=== PATIENT | male | born 1930 | race Hispanic/Latino ===

== ENCOUNTER 2017-02-10 08:15 | Emergency (ER) | payer MEDICARE, BC ==
[2017-02-10 08:16] VITALS: BMI 29.8
[2017-02-10 08:53] LABS: BASO # 0.03 K/mm3 (0.0-2.0); BASO % 0.3 % (0.0-3.0); EOS # 0.2 (0.0-0.7); EOS % 1.7 % (1.5-5.0); GRAN # 6.77 (1.4-6.5); GRAN % 78.7 % (50.0-68.0); HEMOGLOBIN 15.3 g/dL (14.0-18.0); LYMPH # 0.9 (1.2-3.4); LYMPH % 10.5 % (22.0-35.0); MEAN CELL VOLUME 92.9 fl (80.0-105.0); MEAN CORPUSCULAR HEMOGLOBIN 31.2 pg (25.0-35.0); MEAN CORPUSCULAR HGB CONC 33.6 g/dl (31.0-37.0); MEAN PLATELET VOLUME 10.7 fl (7.0-11.0); MONO # 0.8 (0.1-0.6); MONO % 8.8 % (1.0-6.0); PLATELET COUNT 135 10^3/uL (120.0-450.0); RBC 4.91 10^6/uL (3.5-6.1); RED CELL DISTRIBUTION WIDTH 13.9 % (11.5-14.5); WHITE BLOOD COUNT 8.6 10^3/ul (4.5-11.0)
--- NOTE | 2017-02-10 08:53 | ED PDOC ---
Arrival/HPI - General Chief Complaint: Back Pain Time Seen by Provider: 02/10/17 08:27 Historian: Patient - History of Present Illness Narrative History of Present Illness (Text): 02/10/17 08:43 Adrián Byers is a 86 year old male, with a history of hyperlipidemia, and afib on Eliquis, presents to the emergency department complaining of right flank pain s/p fall a week ago. States he was walking in the front yard when he lost balance and fell onto his right wrist and flank region. Denies any loss of consciousness or head trauma. Reports that right wrist pain is resolving, however, states that right flank pain worsened over past few days. Patient was ambulatory after the fall. Denies any numbness, weakness or tingling sensation to the extremity. States he applied a lidocaine patch to the area for minimal relief. Denies fever, chills, headache, dizziness, vision changes, chest pain, difficulty breathing, nausea, vomiting, diarrhea, urinary symptoms, or any other complaints at this time. Time/Duration: 1 week Symptom Onset: Sudden Severity Level: Mild Activities at Onset: Significant Context: Home Past Medical History - Provider Review Nursing Documentation Reviewed: Yes - Cardiac Hx Cardiac Disorders: Yes Hx Pacemaker: No - Neurological Hx Paralysis: No - Hematological/Oncological Hx Blood Transfusions: No - Musculoskeletal/Rheumatological Hx Musculoskeletal Disorders: Yes - Psychiatric Hx Emotional Abuse: No Hx Physical Abuse: No Hx Substance Use: No - Anesthesia Hx Anesthesia Reactions: No Hx Malignant Hyperthermia: No - Suicidal Assessment Feels Threatened In Home Enviroment: No Family/Social History - Physician Review Nursing Documentation Reviewed: Yes Family/Social History: No Known Family HX Smoking Status: Former Smoker Hx Alcohol Use: Yes Frequency of alcohol use: Socially Hx Substance Use: No Allergies/Home Meds Allergies/Adverse Reactions: Allergies No Known Allergies Allergy (Verified 04/23/14 09:57) Home Medications: Home Meds Medication Instructions Recorded Confirmed Apixaban [Eliquis] 2.5 mg PO DAILY 02/10/17 02/10/17 Ezetimibe [Zetia] mg PO DAILY 02/10/17 Review of Systems - Physician Review All systems were reviewed & negative as marked: Yes - Review of Systems Constitutional: Normal. absent: Fatigue, Fevers Respiratory: Normal. absent: SOB, Cough, Sputum Gastrointestinal: Normal. absent: Abdominal Pain, Diarrhea, Nausea, Vomiting Genitourinary Male: Normal. absent: Dysuria Musculoskeletal: Back Pain (Right flank pain ). absent: Neck Pain Skin: Normal Neurological: Normal. absent: Headache, Dizziness Psychiatric: Normal Physical Exam Vital Signs Reviewed: Yes Vital Signs Temp Pulse Resp BP Pulse Ox 02/10/17 12:55 85 16 111/75 96 02/10/17 11:00 80 16 112/80 98 02/10/17 08:58 97.8 F 70 15 126/82 98 Temperature: Afebrile Blood Pressure: Normal Pulse: Regular Respiratory Rate: Normal Appearance: Positive for: Well-Appearing, Non-Toxic, Comfortable Pain Distress: None Mental Status: Positive for: Alert and Oriented X 3 - Systems Exam Head: Present: Atraumatic, Normocephalic Pupils: Present: PERRL Conjunctiva: Present: Normal Mouth: Present: Moist Mucous Membranes Respiratory/Chest: Present: Clear to Auscultation, Good Air Exchange. No: Respiratory Distress, Accessory Muscle Use Cardiovascular: Present: Regular Rate and Rhythm, Normal S1, S2. No: Murmurs Abdomen: Present: Normal Bowel Sounds. No: Tenderness, Distention, Peritoneal Signs Back: Present: CVA Tenderness (right cva tenderness ) Upper Extremity: Present: Normal Inspection, Normal ROM, NORMAL PULSES, Neurovascularly Intact. No: Cyanosis, Edema, Tenderness, Swelling, Erythema, Deformity Lower Extremity: Present: Normal Inspection. No: Edema Neurological: Present: GCS=15, CN II-XII Intact, Speech Normal Skin: Present: Warm, Dry, Normal Color. No: Rashes Psychiatric: Present: Alert, Oriented x 3, Normal Insight, Normal Concentration Medical Decision Making ED Course and Treatment: 02/10/17 08:55 Impression: A 86 year old male who presents to the emergency department complaining of right flank pain s/p fall a week ago. Plan: -- Labs -- CT Lumbar Spine -- Ribs X-ray -- Wrist X-ray -- Urinalysis -- Reassess and disposition Progress Notes: 02/10/17 09:52 Ribs X-ray reviewed: IMPRESSION: Chronic interstitial changes. No evidence of rib fracture 02/10/17 09:53 Wrist X-ray reviewed: No acute findings. 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 There is a slight increase in size in the aneurysm since prior exam. 02/10/17 12:40 Patient did not request for pain medication in the emergency department. He was evaluated by Dr.Smith harry who recommends that patient is stable for discharge and advised patient to follow up at his office on Monday. Patient is aware of the plan and agrees. case also discussed with dr hylton, covering dr montoya, recommends outpt f/u. 02/10/17 14:01 - Lab Interpretations Lab Results: 02/10/17 08:30 02/10/17 08:30 Lab Results 02/10/17 10:45: Urine Color Yellow, Urine Appearance Clear, Urine pH 7.0, Ur Specific [place] 1.010, Urine Protein Trace H, Urine Glucose (UA) Negative, Urine Ketones Negative, Urine Blood Negative, Urine Nitrate Negative, Urine Bilirubin Negative, Urine Urobilinogen 0.2, Ur Leukocyte Esterase Negative, Urine RBC Negative, Urine WBC 0 - 2, Ur Epithelial Cells 0 - 2, Hyaline Casts 0 - 2 02/10/17 08:30: Sodium 139, Potassium 4.8, Chloride 102, Carbon Dioxide 28, Anion Gap 14, BUN 16, Creatinine 1.2, Est GFR ( Amer) > 60, Est GFR (Non- Af Amer) 57, Random Glucose 72, Calcium 9.1, Total Bilirubin 0.6, AST 36, ALT 38 , Alkaline Phosphatase 46, Total Protein 6.9, Albumin 4.0, Globulin 2.9, Albumin /Globulin Ratio 1.4 02/10/17 08:30: PT 12.0 H, INR 1.11 H, APTT 29.3 02/10/17 08:30: WBC 8.6, RBC 4.91, Hgb 15.3, Hct 45.6, MCV 92.9, MCH 31.2, MCHC 33.6, RDW 13.9, Plt Count 135, MPV 10.7, Gran % 78.7 H, Lymph % (Auto) 10.5 L, Christian % (Auto) 8.8 H, Eos % (Auto) 1.7, Baso % (Auto) 0.3, Gran # 6.77 H, Lymph # 0.9 L, Christian # 0.8 H, Eos # 0.2, Baso # 0.03 - RAD Interpretation Radiology Orders: 02/10/17 08:35 RIBS RIGHT & PA CHEST [RAD] Stat WRIST, RIGHT 3 VIEWS [RAD] Stat 02/10/17 09:05 ABD & PELVIS IV CONTRAST ONLY [CT] Stat 02/10/17 09:06 LUMBAR SPINE W/O CONTRAST [CT] Stat - Medication Orders Current Medication Orders: Discontinued Medications Iohexol (Omnipaque 350 100 Ml) Confirm Administered Dose 350 mg .ROUTE .STK-MED ONE Stop: 02/10/17 09:28 - Scribe Statement The provider has reviewed the documentation as recorded by the Rigoibe Speedy Horton Provider Attestation: Provider Scribe Attestation: All medical record entries made by the Scribe were at my direction and personally dictated by me. I have reviewed the chart and agree that the record accurately reflects my personal performance of the history, physical exam, medical decision making, and the department course for this patient. I have also personally directed, reviewed, and agree with the discharge instructions and disposition. Disposition/Present on Arrival - Present on Arrival Any Indicators Present on Arrival: No History of DVT/PE: No History of Uncontrolled Diabetes: No Urinary Catheter: No History of Decub. Ulcer: No History Surgical Site Infection Following: None - Disposition Have Diagnosis and Disposition been Completed?: Yes Diagnosis: Endoleak post endovascular aneurysm repair, Fall, Back pain Disposition: HOME/ ROUTINE Disposition Time: 14:01 Condition: STABLE Discharge Instructions (ExitCare): Fall Prevention for Older Adults (GEN), Acute Low Back Pain (ED) Additional Instructions: please follow up with your doctor/specialist. return to er with worsening symptoms or concerns. Prescriptions: Cyclobenzaprine [Cyclobenzaprine HCl] 10 mg PO DAILY PRN #10 tab PRN Reason: Muscle Spasm Referrals: Esteban Morillo MD [Primary Care Provider] - Follow up with primary Forms: Fio (German)
[2017-02-10 09:03] LABS: INR 1.11 (0.93-1.08); PARTIAL THROMBOPLASTIN TIME 29.3 Seconds (23.7-30.8)
[2017-02-10 09:04] LABS: ALB/GLOB RATIO 1.4 (1.1-1.8); ALT/SGPT 38 U/L (7-56); AST/SGOT 36 U/L (15-59); BLOOD UREA NITROGEN 16 mg/dL (7-21); CALCIUM 9.1 mg/dL (8.4-10.5); GFR AFRICAN-AMERICAN > 60; GFR NON-AFRICAN AMERICAN 57
[2017-02-10 09:05] VITALS: TEMP 97.8
[2017-02-10] MEDS ORDERED: Iohexol 350 MG/100 ML VIAL ONE (09:27)
--- NOTE | 2017-02-10 09:46 | RAD ---
PROCEDURE: Right Wrist Radiographs. HISTORY: fall COMPARISON: None. FINDINGS: BONES: Normal. No fracture. JOINTS: Degenerative changes are seen at the base of the thumb SOFT TISSUES: Normal. OTHER FINDINGS: None. IMPRESSION: No acute findings
--- NOTE | 2017-02-10 09:48 | RAD ---
PROCEDURE: Radiographs of the Chest and Right Ribs. HISTORY: fall COMPARISON: None available. TECHNIQUE: Frontal radiograph of the chest and multiple oblique radiographs of the right ribs were obtained. FINDINGS: RIGHT RIBS: No fracture or focal lesion visualized. LUNGS: Chronic interstitial changes are seen right greater than left PLEURA: No pneumothorax or pleural fluid. CARDIOVASCULAR: Normal sized heart. No pulmonary vascular congestion. OTHER FINDINGS: None. IMPRESSION: Chronic interstitial changes. No evidence of rib fracture
--- NOTE | 2017-02-10 10:04 | CT ---
PROCEDURE: CT Lumbar Spine without contrast HISTORY: fall COMPARISON: None. TECHNIQUE: Axial computed tomography images were obtained of the lumbar spine without the use of intravenous contrast. Coronal and sagittal reformatted images were created and reviewed. Radiation dose: Total exam DLP = 615 mGy-cm. This CT exam was performed using one or more of the following dose reduction techniques: Automated exposure control, adjustment of the mA and/or kV according to patient size, and/or use of iterative reconstruction technique. FINDINGS: VERTEBRAE: Unremarkable. No fracture. Normal alignment. DISCS/SPINAL CANAL/NEURAL FORAMINA: L1-2: Unremarkable. L2-3: Severe disc degeneration L3-4: Severe disc degeneration. L4-5: Severe disc degeneration and disc bulge L5-S1: There is bilateral spondylolysis at L5. There is no evidence of spondylolisthesis PARASPINAL SOFT TISSUES: Unremarkable. OTHER FINDINGS: None. 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 Bilateral spondylolysis at L5 without spondylolisthesis
--- NOTE | 2017-02-10 10:39 | CT ---
PROCEDURE: CT Abdomen and Pelvis with contrast HISTORY: right flank pain/fall/on eliquis COMPARISON: None. TECHNIQUE: Contrast dose: 100 cc of Omni 350 Radiation dose: Total exam DLP = 732 mGy-cm. This CT exam was performed using one or more of the following dose reduction techniques: Automated exposure control, adjustment of the mA and/or kV according to patient size, and/or use of iterative reconstruction technique. FINDINGS: LOWER THORAX: Unremarkable. LIVER: Unremarkable. No gross lesion or ductal dilatation. GALLBLADDER AND BILE DUCTS: Unremarkable. PANCREAS: Unremarkable. No gross lesion or ductal dilatation. SPLEEN: Unremarkable. ADRENALS: Unremarkable. No mass. KIDNEYS AND URETERS: Unremarkable. No hydronephrosis. No solid mass. VASCULATURE: There is a type 1 endoleak in the proximal aneurysm arising from the proximal and of the stent graft. This is best seen on coronal image 63. The endoleak measures 12 x 30 mm. The aneurysm measures 5.5 cm in width on this image. Previously this measured 4.7 cm at this location. There was no endoleak seen previously. The aneurysm has no neck renal arteries from the aneurysm. The stent covers the right renal artery. However the contrast is seen within the right renal artery. The left renal artery is tortuous and is seen adjacent to the stent on image 61. This is also patent. 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 No obstruction. No gross mural thickening. APPENDIX: Normal appendix. PERITONEUM: Unremarkable. No free fluid. No free air. LYMPH NODES: Unremarkable. No enlarged lymph nodes. BLADDER: Unremarkable. REPRODUCTIVE: Enlarged partially calcified prostate BONES: No acute fracture. OTHER FINDINGS: There is no evidence of retroperitoneal or flank hemorrhage. IMPRESSION: No acute intra-abdominal findings. 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 There is a slight increase in size in the aneurysm since the prior exam.
[2017-02-10 10:56] LABS: URINE BILIRUBIN NEGATIVE (NEGATIVE); URINE BLOOD NEGATIVE (NEGATIVE); URINE GLUCOSE (UA) NEGATIVE (NEGATIVE); URINE LEUKOCYTE ESTERASE NEGATIVE Leu/uL (NEGATIVE); URINE NITRATE NEGATIVE (NEGATIVE); URINE PROTEIN TRACE mg/dL (<30 mg/dL); URINE UROBILINOGEN 0.2 E.U./dL (<1 E.U./dL)
[2017-02-10 11:02] LABS: URINE APPEARANCE CLEAR (CLEAR); URINE COLOR YELLOW (YELLOW)
[2017-02-10 11:17] LABS: URINE EPITHELIAL CELLS 0 - 2 /hpf (0-5); URINE HYALINE CAST 0 - 2 /hpf; URINE RBC NEGATIVE /hpf (0-2); URINE WBC 0 - 2 /hpf (0-6)
[2017-02-10 12:56] VITALS: BP 111/75; PULSE 85; RESP 16; O2SAT 96
== END 2017-02-10 13:00 | disposition home or self-care (01) ==
LOC: ED 08:15
DX: M54.9 Dorsalgia, unspecified (principal); T85.638A Leakage of other specified internal prosthetic devices, implants and grafts, initial encounter; W01.0XXA Fall on same level from slipping, tripping and stumbling without subsequent striking against object, initial encounter; E78.5 Hyperlipidemia, unspecified; I48.91 Unspecified atrial fibrillation; Z79.01 Long term (current) use of anticoagulants; Z87.891 Personal history of nicotine dependence
CPT/HCPCS: 71101; 72131; 73110; 74177; 80053; 81001; 85025; 85610; 85730; 99284; Q9967